=== PATIENT | male | born 1970 | race African-American/Black ===

== ENCOUNTER 2018-05-21 06:14 | Emergency (ER) | payer SELFPAY ==
[2018-05-21] MEDS ORDERED: SODIUM CHLORIDE 1,000 ML IV STA (06:35)
[2018-05-21] MEDS ORDERED: ONDANSETRON 4 MG/2 ML VIAL IVPUSH ONE (06:37)
[2018-05-21] MEDS ORDERED: morphine CARPU-JECT 4 MG/1 ML DISP.SYRIN IVPUSH ONE (06:37)
--- NOTE | 2018-05-21 06:42 | PDOC ---
History of Present Illness - General Stated Complaint: ABD PAIN History Source: Patient Exam Limitations: No Limitations - History of Present Illness Initial Comments: 05/21/18 06:40 Mr. Norman is a 47-year-old male with a history of hypertension who presents emergency department with a complaint of severe left flank pain. Patient states symptoms began approximately 3 hours ago. He is awoken from sleep with severe flank pain. Patient hasn't unable to find comfortable position. He rates pain 10/10, no radiation. Patient denies nausea MH: Hypertension PSH: Left shoulder surgery Medication: Amlodipine ALLERGIES: NKDA Social: Patient is largely unable to answer at this moment ROS LIMITED DUE TO PATIENT BEING IN SEVERE PAIN GENERAL/CONSTITUTIONAL: No: fever, chills, CARDIOVASCULAR: No: chest pain, lightheadedness, palpitations, syncope RESPIRATORY: No: shortness of breath, wheezing GASTROINTESTINAL: Yes: left sided abdominal pain No: nausea, vomiting, diarrhea GENITOURINARY: No: dysuria, hematuria, frequency, urgency, flank pain. MUSCULOSKELETAL: Yes: left flank pain No: neck pain, joint pain, muscle swelling or pain SKIN: No: lesions, pallor, rash or easy bruising. NEUROLOGIC: No: headache PE GENERAL: The patient is in excruciating pain, unable to answer too many questions HEAD: Normal EYES: PERRLA, EOMI ENT: Moist mucous membranes. NECK: Normal range of motion, supple LUNGS: Breath sounds equal, clear to auscultation bilaterally. HEART:Regular rate and rhythm, normal S1 and S2 without murmur, rub or gallop. ABDOMEN: Soft, nontender EXTREMITIES: Normal range of motion, no edema. NEUROLOGICAL: Cranial nerves II through XII grossly intact. Normal speech. No focal neurological deficits. MUSCULOSKELETAL: Left CVA tenderness SKIN: Warm, Dry, normal turgor, no rashes or lesions noted. 05/21/18 06:44 Past History - Past Medical History Allergies/Adverse Reactions: Allergies Allergy/AdvReac Type Severity Reaction Status Date / Time No Known Allergies Allergy Verified 05/21/18 07:07 Home Medications: Ambulatory Orders Amlodipine Besylate [Norvasc -] 5 mg PO DAILY 05/21/18 HTN: Yes - Suicide/Smoking/Psychosocial Hx Smoking Status: No Smoking History: Never smoked Number of Cigarettes Smoked Daily: 0 Cigars Per Day: 0 Hx Alcohol Use: No ED Treatment Course - LABORATORY CBC & Chemistry Diagram: 05/21/18 06:50 05/21/18 06:50 Medical Decision Making - Medical Decision Making 05/21/18 06:48 Pt presents to the ER with what appears to be a kidney stone Other differential include: Renal infarct, Musculoskeletal pain, Zoster Will give Labs IVF Morphine Spiral CT 05/21/18 07:25 Signed out to day team *DC/Admit/Observation/Transfer Diagnosis at time of Disposition: Kidney stone on left side - Discharge Dispostion Disposition: HOME Condition at time of disposition: Stable - Referrals Referrals: Ankur Ford [Primary Care Provider] - - Patient Instructions Printed Discharge Instructions: DI for Kidney Stones Additional Instructions: Discharge Instructions: You were ween in the emergency department with left-sided flank pain and were diagnosed with a kidney stone. The stone was seen to have almost reached the bladder and should likely pass on its own soon. Home Care: - Drink plenty of fluids - You may take 800mg ibuprofen (Advil or Motrin) every 6-8 hours as needed for pain - Do not be concerned if you notice that your urine is a little pink or orange; this can happen due to irritation from the stone passing Follow Up: - Make an appointment to follow up with your primary doctor within the next 1-2 weeks. You had a blood test showing that your kidney function tests (creatinine ) was slightly elevated at 1.7. Although this might be due to the stone, you should have a follow up blood test to check. - Seek immediate medical care if your pain worsens or does not improve in several days, if you notice significant blood in your urine, or if you have any medical emergency including chest pain or shortness of breath. - Post Discharge Activity
[2018-05-21] MEDS ORDERED: morphine SULFATE 4 MG/ML VIAL ONE (06:44)
[2018-05-21] MEDS ORDERED: ONDANSETRON 4 MG/2 ML VIAL ONE (06:45)
[2018-05-21] MEDS ORDERED: KETOROLAC TROMETHAMINE 30 MG/1 ML VIAL ONE (06:55)
[2018-05-21] MEDS ORDERED: KETOROLAC TROMETHAMINE 30 MG/1 ML VIAL IVPUSH ONE (06:56)
[2018-05-21 07:13] LABS: BASO % 0.7 % (0-2.0); EOS % 0.9 % (0-4.5); HEMATOCRIT 42.4 % (35.4-49); HEMOGLOBIN 13.2 GM/dL (11.7-16.9); LYMPH % 24.9 % (8-40); MCH 28.6 pg (25.7-33.7); MCHC 31.1 g/dl (32.0-35.9); MEAN CELL VOLUME 91.7 fl (80-96); MEAN PLT VOLUME 9.6 fl (7.5-11.1); MONO % 4.6 % (3.8-10.2); NEUT % 68.9 % (42.8-82.8); PLATELET COUNT 183 K/MM3 (134-434); RBC 4.62 M/mm3 (4.00-5.60); RDW 13.2 % (11.9-15.9); WHITE BLOOD COUNT 8.6 K/mm3 (4.0-10.0)
[2018-05-21 07:14] VITALS: BMI 34.0
--- NOTE | 2018-05-21 07:43 | PDOC ---
*Physical Exam - Vital Signs Last Vital Signs Temp Pulse Resp BP Pulse Ox 98.5 F 102 H 19 169/86 100 05/21/18 06:20 05/21/18 06:20 05/21/18 06:20 05/21/18 06:20 05/21/18 06:20 ED Treatment Course - LABORATORY CBC & Chemistry Diagram: 05/21/18 06:50 05/21/18 06:50 - ADDITIONAL ORDERS Additional order review: 05/21/18 06:50 RBC 4.62 MCV 91.7 MCHC 31.1 L RDW 13.2 MPV 9.6 Neutrophils % 68.9 Lymphocytes % 24.9 Monocytes % 4.6 Eosinophils % 0.9 Basophils % 0.7 - Medications Given in the ED: ED Medications Discontinued Medications Generic Name Dose Route Start Last Admin Trade Name Freq PRN Reason Stop Dose Admin Sodium Chloride 1,000 mls @ 1,000 mls/hr 05/21/18 06:35 05/21/18 07:07 Normal Saline - IV 05/21/18 07:34 1,000 mls/hr ASDIR STA Administration Ketorolac Tromethamine 30 mg 05/21/18 06:56 05/21/18 07:08 Toradol Injection - IVPUSH 05/21/18 06:57 30 mg ONCE ONE Administration Morphine Sulfate 4 mg 05/21/18 06:37 05/21/18 07:08 Morphine Injection - IVPUSH 05/21/18 06:38 4 mg ONCE ONE Administration Ondansetron HCl 4 mg 05/21/18 06:37 05/21/18 07:08 Zofran Injection IVPUSH 05/21/18 06:38 4 mg ONCE ONE Administration Medical Decision Making - Medical Decision Making 05/21/18 07:43 Darryl Norman is a 47yo man with a h/o HTN who presented to the ED with severe left flank pain that started overnight. So far in the ED he has recieved morphine and IVF with some improvement in pain. - Labs were sent; CBC reviewed without any concerning abnormalities noted. - Chemistry and UA pending. - CT pending. 05/21/18 09:09 - Chemistry reviewed. Cr elevated at 1.7 but no comparison available. Pt has already received IVF, discussed increased hydration at home - CT completed. Shows 3mm stone at L UVJ. Also notes likely complex renal cysts - Discussed results with Mr Norman. He feels significantly improved. Discussed home care, follow up, and return precautions at length. Patient states understanding and agreement with plan to d/c home. He will f/u with Discussed with Dr Canales. Lise Nolasco PGY1 *DC/Admit/Observation/Transfer Diagnosis at time of Disposition: Kidney stone on left side - Discharge Dispostion Disposition: HOME Condition at time of disposition: Stable Decision to Admit order: No - Referrals Referrals: Ankur Ford [Primary Care Provider] - - Patient Instructions Printed Discharge Instructions: DI for Kidney Stones Additional Instructions: Discharge Instructions: You were ween in the emergency department with left-sided flank pain and were diagnosed with a kidney stone. The stone was seen to have almost reached the bladder and should likely pass on its own soon. Home Care: - Drink plenty of fluids - You may take 800mg ibuprofen (Advil or Motrin) every 6-8 hours as needed for pain - Do not be concerned if you notice that your urine is a little pink or orange; this can happen due to irritation from the stone passing Follow Up: - Make an appointment to follow up with your primary doctor within the next 1-2 weeks. You had a blood test showing that your kidney function tests (creatinine ) was slightly elevated at 1.7. Although this might be due to the stone, you should have a follow up blood test to check. - Seek immediate medical care if your pain worsens or does not improve in several days, if you notice significant blood in your urine, or if you have any medical emergency including chest pain or shortness of breath. - Post Discharge Activity
[2018-05-21 08:00] LABS: ALBUMIN 3.8 g/dl (3.4-5.0); ALK PHOS 65 U/L (45-117); ANION GAP 10 MMOL/L (8-16); BILIRUBIN,TOTAL 0.9 mg/dL (0.2-1); BLOOD UREA NITROGEN 18 mg/dL (7-18); CALCIUM 8.3 mg/dL (8.5-10.1); CHLORIDE 106 mmol/L (98-107); CO2 26 mmol/L (21-32); CREATININE 1.7 mg/dL (0.55-1.3); GLUCOSE,RANDOM 182 mg/dL (74-106); SGOT/AST 44 U/L (15-37); SGPT/ALT 70 U/L (13-61); SODIUM 141 mmol/L (136-145); TOT PROT 7.1 g/dl (6.4-8.2)
[2018-05-21 08:31] LABS: URINE APPEARANCE CLEAR; URINE BILIRUBIN NEGATIVE (<2.0 mg/dL); URINE COLOR LTYELLOW; URINE GLUCOSE (UA) NEGATIVE (NEGATIVE); URINE KETONE NEGATIVE (NEGATIVE); URINE LEUK ESTERASE NEGATIVE (NEGATIVE); URINE NITRITE NEGATIVE (NEGATIVE); URINE PROTEIN 1+ (NEGATIVE); URINE UROBILINOGEN NEGATIVE mg/dL (0.2-1.0)
[2018-05-21 08:33] LABS: URINE MUCUS RARE
[2018-05-21 10:04] VITALS: BP 142/90; PULSE 67; TEMP 97.9
== END 2018-05-21 10:06 | disposition home or self-care (01) ==
LOC: JER 06:14
PROC: 3E0337Z Introduction of Electrolytic and Water Balance Substance into Peripheral Vein, Percutaneous Approach (ICD-10-PCS; principal; 2018-05-21)
PROC: 3E033GC Introduction of Other Therapeutic Substance into Peripheral Vein, Percutaneous Approach (ICD-10-PCS; 2018-05-21)
PROC: 3E033NZ Introduction of Analgesics, Hypnotics, Sedatives into Peripheral Vein, Percutaneous Approach (ICD-10-PCS; 2018-05-21)
PROC: 3E0333Z Introduction of Anti-inflammatory into Peripheral Vein, Percutaneous Approach (ICD-10-PCS; 2018-05-21)
DX: N20.0 Calculus of kidney (principal); I10 Essential (primary) hypertension
CPT/HCPCS: 36415; 74176; 80053; 81003; 81015; 85025; 87086; 99285-25; J7030

== ENCOUNTER 2019-04-11 05:50 | Day surgery (SDC) | payer OTHER ==
[2019-03-31 10:26] VITALS: BMI 34.1
[2019-04-11] MEDS ORDERED: EPINEPHrine 1:1,000 1 MG/1 ML - 30ML VIAL (INJECTION) ONE (07:06)
[2019-04-11] MEDS ORDERED: MIDAZOLAM HCL 2 MG/2 ML SINGLE DOSE VIAL ONE (07:09)
[2019-04-11] MEDS ORDERED: ROPIVACAINE HCL 0.5% 30ML VIAL ONE (07:09)
[2019-04-11] MEDS ORDERED: PROPOFOL 20 ML ONE (07:10)
[2019-04-11] MEDS ORDERED: LIDOCAINE HCL/PF 2% SDV 5ML VIAL ONE (07:10)
[2019-04-11] MEDS ORDERED: SUCCINYLCHOLINE CHLORIDE 200 MG/10 ML SYRINGE ONE (07:10)
[2019-04-11] MEDS ORDERED: ceFAZolin SODIUM 1 GM VIAL ONE (07:55)
[2019-04-11] MEDS ORDERED: ONDANSETRON 4 MG/2 ML VIAL ONE (08:02)
[2019-04-11] MEDS ORDERED: DEXAMETHASONE SOD PHOSPHATE 4 MG/1 ML VIAL ONE (08:02)
[2019-04-11 10:26] VITALS: TEMP 97.9
[2019-04-11 11:14] VITALS: BP 126/76; PULSE 76
[2019-04-11] MEDS ORDERED: oxyCODONE HCL 5 MG TABLET PO PRN ×2 (11:17)
[2019-04-11] MEDS ORDERED: ONDANSETRON 4 MG/2 ML VIAL IVPUSH PRN (11:17)
[2019-04-11] MEDS ORDERED: LACTATED RINGERS SOLUTION 1,000 ML IV SCH (11:30)
--- NOTE | 2019-04-11 12:38 | OP ---
DATE OF OPERATION: 04/11/[address] [facility] SURGEON: Willis Maxwell MD RECTIFIER OPERATOR: ALISA Ott PREOPERATIVE DIAGNOSES: 1. Right shoulder rotator cuff tear. 2. Right shoulder adhesive capsulitis. 3. Right shoulder impingement syndrome. 4. Right shoulder acromioclavicular degenerative joint disease. 5. Right shoulder superior labral tear, anterior and posterior with synovitis. POSTOPERATIVE DIAGNOSES: 1. Right shoulder rotator cuff tear. 2. Right shoulder adhesive capsulitis. 3. Right shoulder impingement syndrome. 4. Right shoulder acromioclavicular degenerative joint disease. 5. Right shoulder superior labral tear, anterior and posterior with synovitis. PROCEDURES: 1. Right shoulder arthroscopy with arthroscopic rotator cuff repair, CPT code 50052 2. Right shoulder arthroscopy with lysis and resection of adhesions, CPT code 25487. 3. Right shoulder arthroscopy with subacromial decompression, CPT code 40943. 4. Right shoulder arthroscopy with resection of distal clavicle acromioclavicular joint, CPT code 54735. 5. Right shoulder arthroscopy with debridement, CPT code 59451. FINDINGS: 1. Glenohumeral synovitis 2. Type 2 superior labral tear anterior, posterior. 3. Anterior glenoid adhesions. 4. Posterior labral fraying. 5. Full-thickness supraspinatus tear 6 cm in length. 6. Partial biceps tear 10%. 7. Type 3 acromion with anterior spurring. 8. Inferior spurs to clavicle with acromioclavicular joint disease. 9. Thickened scar subacromial space pronounced anteriorly and laterally. REPAIR TYPE: Two mattress sutures placed into the supraspinatus bleeding bone bed along the greater tuberosity. PROCEDURE: Informed consent was obtained. The patient was taken to the operating room, where the upper extremity was prepped and draped in a sterile fashion. The shoulder was manipulated for a full range of motion. A posterior incision portal was made and directed to the glenohumeral joint. Under direct visualization, an anterior incision and portal was made. Extensive synovitis, as well as chondral injuries throughout the glenohumeral joint were debrided and removed. Any identified labral injuries, including the superior labral tear, anterior and posterior, and anterior labrum torn portions, were removed as well. The rotator cuff was visualized and noted to have a full-thickness tear. The edges were debrided. The posterior incision portal was redirected to the subacromial space where a lateral incision portal was made. Excessive and thickened scar tissue noted throughout the subacromial space, including bursal and scar tissue, were removed. The type 2 acromion was converted into a flattened type 1 using a bur for subacromial decompression. The distal inferior spur at the distal clavicle was also debrided with the use of an accessory portal in the acromioclavicular joint. The edges of the rotator cuff were identified. Sutures were placed into the rotator cuff and secured using anchors through the greater tuberosity. Prior to securing, a bleeding bed was made using a small bur, creating a bleeding surface of the rotator cuff insertion. The shoulder was then drained, a single suture was placed in all portals, a sterile dressing was placed and the patient was transferred to the recovery room without complication. The PA listed above was present and assisted at surgery. Their presence was absolutely medically necessary for the completion of the procedure. They helped hold the arthroscopy, pass instruments (and implants when indicated) and the procedure could not have been completed without their assistance. WILLIS MAXWELL M.D. [id number]
== END 2019-04-11 11:14 | disposition home or self-care (01) ==
LOC: FASU 05:50
PROVIDERS: ATTEND Orthopaedic Surgery
PROC: 0RNJ4ZZ Release Right Shoulder Joint, Percutaneous Endoscopic Approach (ICD-10-PCS; 2019-04-11)
PROC: 0PB94ZZ Excision of Right Clavicle, Percutaneous Endoscopic Approach (ICD-10-PCS; 2019-04-11)
PROC: 0RBJ4ZZ Excision of Right Shoulder Joint, Percutaneous Endoscopic Approach (ICD-10-PCS; 2019-04-11)
PROC: 0LQ14ZZ Repair Right Shoulder Tendon, Percutaneous Endoscopic Approach (ICD-10-PCS; principal; 2019-04-11 08:14)
DX: M75.121 Complete rotator cuff tear or rupture of right shoulder, not specified as traumatic (principal); M75.01 Adhesive capsulitis of right shoulder; M75.41 Impingement syndrome of right shoulder; M19.011 Primary osteoarthritis, right shoulder; S43.431A Superior glenoid labrum lesion of right shoulder, initial encounter; X58.XXXA Exposure to other specified factors, initial encounter; Y93.9 Activity, unspecified; Y92.9 Unspecified place or not applicable
CPT/HCPCS: 94760